=== PATIENT | male | born 1995 | race African-American/Black ===

== ENCOUNTER 2017-04-27 14:19 | Emergency (ER) | payer BC ==
[~2017-04-27] VITALS: Ht 177.8 cm; Wt 75.5 kg
[2017-04-27 14:56] LABS: HEMATOCRIT 50.8 % (38.0-50.0); MCH 30.1 PG (29.0-34.0); MCHC 33.9 G/DL (30.0-36.0); MEAN PLAT.VOLUME 11.6 uM^3 (9.0-12.4); PLATELET COUNT 149 K/uL (156-360); RBC DIS.WIDTH-CV 12.3 % (11.8-14.6); RBC DIS.WIDTH-SD 40.1 % (39-53); RED BLOOD COUNT 5.71 M/uL (4.00-5.50); WHITE BLOOD COUNT 3.1 K/uL (4.1-10.2)
[2017-04-27 15:09] LABS: CHLORIDE 106 mEq/L (99-109); POTASSIUM 4.4 mEq/L (3.7-5.4); SODIUM 139 mEq/L (136-147)
[2017-04-27 15:11] LABS: GLUCOSE 92 mg/dL (70-99)
[2017-04-27 15:12] LABS: ANION GAP 7 MEQ/L (2-14)
[2017-04-27 15:14] LABS: ALKALINE PHOSPHATASE 58 IU/L (3-129)
[2017-04-27 15:15] LABS: GFR ESTIMATE (CALCULATED) > 59 mL/min/
[2017-04-27 15:16] LABS: UREA NITROGEN (BUN) 12 mg/dL (9-23)
[2017-04-27 15:18] LABS: LIPASE 15 U/L (1.0-51.0)
[2017-04-27 15:32] LABS: ADD MIUA? NO; BILIRUBIN NEGATIVE; BLOOD NEGATIVE; COLOR YELLOW ((YELLOW)); GLUCOSE (STRIP) NEGATIVE; KETONES NEGATIVE; LEUKOCYTES NEGATIVE; NITRITE NEGATIVE; PROTEIN (STRIP) NEGATIVE; SPECIFIC GRAVITY 1.026 (1.000-1.030); UCUL ADDED? NO
[2017-04-27] MEDS ORDERED: ZOFRAN ODT4 MG PO (17:22)
[2017-04-27] MEDS ORDERED: NAPROSYN500 MG PO (17:22)
[2017-04-27 17:41] VITALS: BP 143/81
== END 2017-04-27 17:53 | disposition home or self-care (01) ==
LOC: EME 14:19
DX: R10.31 Right lower quadrant pain (principal); R11.2 Nausea with vomiting, unspecified
CPT/HCPCS: 74176; 80053; 81003; 83690; 85027; 99281; 99284; J7030